=== PATIENT | female | born 1990 | race Caucasian/White ===

== ENCOUNTER 2016-06-09 08:54 | Emergency (ER) | payer OTHER ==
[~2016-06-09] VITALS: Ht 157.5 cm; Wt 122.4 kg
[~2016-06-09 08:54] MED LIST: BACTRIM,SEPT1 TABLET PO; BENADRYL25 MG PO; CITALOPRAM HBR10 MG PO; FLEXERIL5 MG PO; HYDROCODON-ACE1 EAC7 PO; KENALOG,ARISTOC15 GM TP; MEDROL DOSEPAK4 MG PO; NOHOMEMEDS; PREDNISONE20 MG PO; TRAZODONE HCL50 MG PO
[2016-06-09 09:20] LABS: HEMATOCRIT 42.5 % (36.0-46.0); MCH 28.8 PG (29.0-34.0); MCHC 34.1 G/DL (30.0-36.0); MCV 84.3 FL (83-99); MEAN PLAT.VOLUME 10.3 uM^3 (9.5-12.4); PLATELET COUNT 289 K/uL (156-360); RBC DIS.WIDTH-CV 13.4 % (11.8-14.6); RBC DIS.WIDTH-SD 40.9 % (39-53); RED BLOOD COUNT 5.04 M/uL (3.80-5.20); WHITE BLOOD COUNT 11.1 K/uL (4.1-10.2)
[2016-06-09 09:30] LABS: CHLORIDE 108 mEq/L (99-109); POTASSIUM 3.8 mEq/L (3.7-5.4); SODIUM 138 mEq/L (136-147)
[2016-06-09 09:31] LABS: GLUCOSE 89 mg/dL (70-99)
[2016-06-09 09:33] LABS: ANION GAP 10 MEQ/L (2-14)
[2016-06-09 09:35] LABS: GFR ESTIMATE (CALCULATED) > 59 mL/min/
[2016-06-09 09:36] LABS: UREA NITROGEN (BUN) 15 mg/dL (9-23)
[2016-06-09] MEDS ORDERED: PROAIR HFA8.5 GM IH (11:48)
[2016-06-09] MEDS ORDERED: ZITHROMAX250 MG PO (11:48)
[2016-06-09] MEDS ORDERED: ROBITUSSIN NIG118 ML PO (11:48)
[2016-06-09] MEDS ORDERED: TESSALON PERLE100 MG PO (11:48)
[2016-06-09] MEDS ORDERED: NAPROSYN500 MG PO (11:48)
[2016-06-09 12:03] VITALS: BP 133/90
== END 2016-06-09 12:04 | disposition home or self-care (01) ==
LOC: EME 08:54
DX: J20.9 Acute bronchitis, unspecified (principal); J30.9 Allergic rhinitis, unspecified; J32.9 Chronic sinusitis, unspecified
CPT/HCPCS: 71020; 80048; 85027; 94640; 99281; 99284; J1885

== ENCOUNTER 2017-03-05 11:18 | Emergency (ER) | payer OTHER ==
[~2017-03-05] VITALS: Ht 157.5 cm; Wt 113.1 kg
[~2017-03-05 11:18] MED LIST changes: +NAPROSYN500 MG PO; +PROAIR HFA8.5 GM IH; +ROBITUSSIN NIG118 ML PO; +TESSALON PERLE100 MG PO; +ZITHROMAX250 MG PO
[2017-03-05 13:04] VITALS: BP 123/80
[2017-03-05] MEDS ORDERED: NAPROSYN500 MG PO (13:20)
[2017-03-05] MEDS ORDERED: ULTRAM50 MG PO (13:20)
[2017-03-06] MEDS ORDERED: DOXYCYCLINE HY100 MG PO (18:20)
== END 2017-03-05 14:02 | disposition home or self-care (01) ==
LOC: EME 11:18
DX: L03.311 Cellulitis of abdominal wall (principal); L02.211 Cutaneous abscess of abdominal wall; F41.9 Anxiety disorder, unspecified; F32.9 Major depressive disorder, single episode, unspecified; J45.909 Unspecified asthma, uncomplicated
CPT/HCPCS: 99281; 99284

== ENCOUNTER 2017-03-06 14:18 | Inpatient (IN) | payer OTHER ==
[~2017-03-06] VITALS: Ht 157.5 cm; Wt 113.9 kg
[~2017-03-06 14:18] MED LIST changes: +ULTRAM50 MG PO
[2017-03-06 16:09] LABS: HEMATOCRIT 40.4 % (36.0-46.0); MCH 28.9 PG (29.0-34.0); MCHC 32.9 G/DL (30.0-36.0); MCV 87.8 FL (83-99); MEAN PLAT.VOLUME 10.4 uM^3 (9.5-12.4); PLATELET COUNT 255 K/uL (156-360); RBC DIS.WIDTH-CV 13.2 % (11.8-14.6); RBC DIS.WIDTH-SD 42.6 % (39-53); WHITE BLOOD COUNT 16.6 K/uL (4.1-10.2)
[2017-03-06 16:17] LABS: CHLORIDE 106 mEq/L (99-109); POTASSIUM 3.9 mEq/L (3.7-5.4); SODIUM 140 mEq/L (136-147)
[2017-03-06 16:19] LABS: GLUCOSE 80 mg/dL (70-99)
[2017-03-06 16:20] LABS: ANION GAP 10 MEQ/L (2-14)
[2017-03-06 16:21] LABS: TOTAL BILIRUBIN 0.4 mg/dL (0.0-1.0)
[2017-03-06 16:23] LABS: ALKALINE PHOSPHATASE 68 IU/L (3-129); GFR ESTIMATE (CALCULATED) > 59 mL/min/
[2017-03-06 16:24] LABS: UREA NITROGEN (BUN) 15 mg/dL (9-23)
[2017-03-06] MEDS ORDERED: DOXYCYCLINE HY100 MG PO (18:20)
[2017-03-07 00:12] VITALS: BP 111/66
[2017-03-07 06:14] LABS: EOSINOPHIL (%) 2.1 % (0-5); EOSINOPHIL COUNT 0.2 K/uL (0-0.3); HEMATOCRIT 35.1 % (36.0-46.0); IMMATURE GRANULOCYTE (%) 0.2 % (0.0-0.7); INSTRUMENT ABS NEUTROPHIL CT 7.4 K/uL; LYMPHOCYTE COUNT 1.9 K/uL (1.0-2.8); MCH 29.5 PG (29.0-34.0); MCV 89.3 FL (83-99); MEAN PLAT.VOLUME 10.7 uM^3 (9.5-12.4); MONOCYTE (%) 6.9 % (3-12); MONOCYTE COUNT 0.7 K/uL (0-0.8); NEUTROPHIL (%) 72.1 % (45-76); NEUTROPHIL COUNT 7.4 K/uL (1.8-6.4); PLATELET COUNT 228 K/uL (156-360); RBC DIS.WIDTH-CV 13.2 % (11.8-14.6); RBC DIS.WIDTH-SD 43.8 % (39-53); RED BLOOD COUNT 3.93 M/uL (3.80-5.20); WHITE BLOOD COUNT 10.2 K/uL (4.1-10.2)
[2017-03-07 06:36] LABS: ANION GAP 6 MEQ/L (2-14); CHLORIDE 112 MEQ/L (99-109); GFR ESTIMATE (CALCULATED) > 59 mL/min/; GLUCOSE 93 mg/dL (70-99); POTASSIUM 4.1 MEQ/L (3.7-5.4); SAMPLE HEMOLYSIS CHECK 0; SAMPLE ICTERIC CHECK 0; SAMPLE LIPEMIA CHECK 0; SODIUM 143 MEQ/L (136-147); UREA NITROGEN (BUN) 11 mg/dL (9-23)
[2017-03-07 08:00] VITALS: BP 129/81
[2017-03-07 16:00] VITALS: BP 131/81
[2017-03-08 00:20] VITALS: BP 122/70
[2017-03-08 07:58] VITALS: BP 124/73
[2017-03-08 15:32] VITALS: BP 108/66
[2017-03-09 07:48] VITALS: BP 112/60
[2017-03-09] MEDS ORDERED: BACTRIM,SEPT1 TABLET PO (14:16)
[2017-03-09] MEDS ORDERED: IBUPROFEN400 MG PO (14:16)
== END 2017-03-09 16:13 | disposition home or self-care (01) | DRG 603 ==
LOC: EME 14:18 → EDOF 19:40 → 5SOUTH 19:40 → ENRESERV 19:43 → 5SOUTH 21:32
PROVIDERS: Hospitalist; Physician Assistant
DX: L03.311 Cellulitis of abdominal wall (principal); L02.211 Cutaneous abscess of abdominal wall; E66.01 Morbid (severe) obesity due to excess calories; Z68.42 Body mass index [BMI] 45.0-49.9, adult
CPT/HCPCS: 74177; 80048; 80053; 80202; 83605; 85025; 85027; 87040; 87070; 87075; 87205; 99281; 99284; 99285; J0690; J1650; J1885; J2270; J2405; J3010; J3370; J7030

== ENCOUNTER 2017-09-01 15:04 | Emergency (ER) | payer OTHER ==
[~2017-09-01] VITALS: Ht 157.5 cm; Wt 102.3 kg
[~2017-09-01 15:04] MED LIST changes: +DOXYCYCLINE HY100 MG PO; +IBUPROFEN400 MG PO
[2017-09-01 15:14] VITALS: BP 112/81
== END 2017-09-01 16:49 | disposition home or self-care (01) ==
LOC: EME 15:04
DX: S90.31XA Contusion of right foot, initial encounter (principal); S90.32XA Contusion of left foot, initial encounter; W22.8XXA Striking against or struck by other objects, initial encounter
CPT/HCPCS: 73630